=== PATIENT | male | born 1970 | race Caucasian/White ===

== ENCOUNTER 2018-08-07 22:23 | Emergency (ER) | END 2018-08-08 | disposition left against medical advice (07) ==

== ENCOUNTER 2018-12-02 00:12 | Emergency (ER) | payer SELFPAY ==
[~2018-12-02] VITALS: Ht 180.3 cm; Wt 85.6 kg
[~2018-12-02 00:12] MED LIST: ESCI20TA PO; GABA400C14 PO; QUET100T PO; TEMA-106; TRAZ-111; TRAZ-111 PO; ZIPR40CA2 PO
[2018-12-02 00:18] VITALS: BP 129/88; PULSE 91; RESP 18; Ht 180.3 cm; Wt 85.6 kg
[2018-12-03] MEDS ORDERED: IBUP-1542 PO (02:21)
[2018-12-03] MEDS ORDERED: NPH10OT BOTH EARS (02:21)
== END 2018-12-02 05:30 | disposition left against medical advice (07) ==
LOC: FTE 00:12
DX: Z53.21 Procedure and treatment not carried out due to patient leaving prior to being seen by health care provider (principal)

== ENCOUNTER 2018-12-02 23:38 | Emergency (ER) | payer MEDICARE, OTHER ==
[~2018-12-02] VITALS: Ht 180.3 cm; Wt 85.9 kg
[2018-12-02 23:49] VITALS: Ht 180.3 cm; Wt 85.9 kg
[2018-12-03] MEDS ORDERED: IBUP-1542 PO (02:21)
[2018-12-03] MEDS ORDERED: NPH10OT BOTH EARS (02:21)
[2018-12-03 02:30] VITALS: BP 123/78; PULSE 89; RESP 16
--- NOTE | 2018-12-03 02:42 | ERD ---
ER Documentation Chief Complaint Chief Complaint bilateral ear pain since yesterday HPI 48-year-old male history of schizophrenia presents with bilateral ear pain. States the pain started yesterday without any instigating factors. He thinks that someone implanted a high-frequency device in his ears causing the pain. He does not want me to use an otoscope in the ears because he says they are very tender to palpation. He denies any fevers, hearing loss, trauma to the ears. History of thyroid problem and schizophrenia. Taking Tapazole. Denies allergies. ROS All systems reviewed and are negative except as per history of present illness. Medications Home Meds Active Scripts Ibuprofen* (Motrin*) 600 Mg Tab, 600 MG PO Q6 for pain, #30 TAB Prov:RIVKA ALBERTO 12/03/18 Neomycin/Polymyxin/Hydrocort* (Cortisporin* Otic) 10 Ml Susp, 4 DROP BOTH EARS QID for otitis externa for 7 Days, EA Prov:RIVKA ALBERTO 12/03/18 Quetiapine Fumarate* (Seroquel*) 100 Mg Tablet, 100 MG PO HS, #30 TAB Prov:RIVKA GUERRA S. 11/15/18 Trazodone Hcl* (Trazodone Hcl*) 50 Mg Tablet, 50 MG PO QHS, #30 TAB Prov:RIVKA GUERRA. 11/15/18 Ziprasidone* (Geodon*) 40 Mg Capsule, 40 MG PO BID for 10 Days, CAP Prov:RIVKA GUERRA. 11/15/18 Reported Medications Gabapentin* (Gabapentin*) 400 Mg Capsule, 400 MG PO TID, #90 CAP 08/07/18 Trazodone Hcl* (Trazodone Hcl*) 50 Mg Tablet 04/21/11 Escitalopram Oxalate* (Lexapro*) 20 Mg Tablet, 30 PO DAILY 04/21/11 Temazepam (Restoril) 15 Mg Cap 04/21/11 Allergies Allergies: Coded Allergies: No Known Drug Allergies (Verified Allergy, Unknown, 08/07/18) PMhx/Soc History of Surgery: Yes (Jaw Surgery) Anesthesia Reaction: No Hx Neurological Disorder: No Hx Respiratory Disorders: No Hx Cardiac Disorders: No Hx Psychiatric Problems: Yes (ETOH,Clinical Depression) Hx Miscellaneous Medical Probl: Yes (Thyroidism) Hx Alcohol Use: Yes (Formerly) Hx Substance Use: Yes (Opiates) Hx Tobacco Use: Yes (10 sticks/day) Smoking Status: Current every day smoker FmHx Family History: No diabetes, No coronary disease, No other Physical Exam Vitals Vital Signs Date Temp Pulse Resp B/P (MAP) Pulse Ox O2 O2 Flow FiO2 Time Delivery Rate 12/03/18 98.7 89 16 123/78 99 Room Air 02:30 (93) 12/02/18 98.9 99 16 126/82 98 23:49 (97) Physical Exam Const: No acute distress Head: Atraumatic Eyes: Normal Conjunctiva ENT: Normal External Ears, Nose and Mouth. Tragus is tender to palpation on bilateral sides. Unable to insert speculum glottiscope due to pain. There is no mastoid erythema, edema, or tenderness to palpation. Neck: Full range of motion. No meningismus. Resp: Clear to auscultation bilaterally Cardio: Regular rate and rhythm, no murmurs Neur: Awake and alert Procedures/MDM 48-year-old male history of schizophrenia presents with bilateral ear pain. States the pain started yesterday without any instigating factors. He thinks that someone implanted a high-frequency device in his ears causing the pain. He does not want me to use an otoscope in the ears because he says they are very tender to palpation. He denies any fevers, hearing loss, trauma to the ears. History of thyroid problem and schizophrenia. Taking Tapazole. Denies allergies. I have low suspicion for mastoiditis due to lack of erythema, edema, or ttp over mastoid area. I have low suspicion for intercranial abscess due to lack of RINCON or focal neurological findings. I have low suspicion of TM rupture or trauma based on lack of hearing loss, vertigo, and PE findings. Most likely diagnosis is acute otitis external based on these findings I do not feel that additional labs or imaging is necessary. Patient given Rx for Cortisporin as well as ibuprofen. Patient was discharged with strict ER precautions. Patient was recommended to follow-up with PMD. All questions answered at discharge. Departure Diagnosis: Primary Impression: Otitis externa Otitis externa type: unspecified type Chronicity: acute Laterality: bilateral Qualified Codes: H60.503 - Unspecified acute noninfective otitis externa, bilateral Condition: Stable Patient Instructions: External Ear Infection (Adult) Referrals: COMMUNITY CLINICS YOU HAVE RECEIVED A MEDICAL SCREENING EXAM AND THE RESULTS INDICATE THAT YOU DO NOT HAVE A CONDITION THAT REQUIRES URGENT TREATMENT IN THE EMERGENCY DEPARTMENT. FURTHER EVALUATION AND TREATMENT OF YOUR CONDITION CAN WAIT UNTIL YOU ARE SEEN IN YOUR DOCTORS OFFICE WITHIN THE NEXT 1-2 DAYS. IT IS YOUR RESPONSIBILITY TO MAKE AN APPOINTMENT FOR FOLOW-UP CARE. IF YOU HAVE A PRIMARY DOCTOR --you should call your primary doctor and schedule an appointment IF YOU DO NOT HAVE A PRIMARY DOCTOR YOU CAN CALL OUR PHYSICIAN REFERRAL HOTLINE AT IF YOU CAN NOT AFFORD TO SEE A PHYSICIAN YOU CAN CHOSE FROM THE FOLLOWING [facility] [address] [facility] [facility] [address] [facility] [facility] [address] [facility] [facility] [address] [facility] [address] [facility] [facility] [address] Additional Instructions: FOLLOW UP WITH YOUR PRIMARY CARE PHYSICIAN TOMORROW.Return to this facility if you are not improving as expected. RIVKA ALBERTO Dec 03, 2018 02:42
[2018-12-04] MEDS ORDERED: BUPR-75 PO (11:38)
[2018-12-04] MEDS ORDERED: METH10TA5 PO (11:38)
[2018-12-04] MEDS ORDERED: CHOL100062 PO (11:38)
[2018-12-04] MEDS ORDERED: TRAZ-111 PO (11:38)
== END 2018-12-03 02:30 | disposition home or self-care (01) ==
LOC: FTE 23:38
DX: H60.503 Unspecified acute noninfective otitis externa, bilateral (principal); F17.210 Nicotine dependence, cigarettes, uncomplicated; E03.9 Hypothyroidism, unspecified
CPT/HCPCS: 99283

== ENCOUNTER 2018-12-03 23:38 | Emergency (ER) | payer MEDICARE, OTHER ==
[~2018-12-03] VITALS: Ht 180.3 cm; Wt 86.0 kg
[~2018-12-03 23:38] MED LIST changes: +IBUP-1542 PO; +NPH10OT BOTH EARS
[2018-12-03 23:50] VITALS: Ht 180.3 cm; Wt 86.0 kg
--- NOTE | 2018-12-04 00:26 | PSY ---
Date/Time of Note Date/Time of Note DATE: 12/04/18 TIME: 00:15 Psychiatric Subjective Eval Consent Pt consented to telemedicine: Yes Subjective Evaluation Patient location: emergency Chief Complaint: anxiety, states [employer] detectives are tracking him causing weakness, anxiety Medical history Problems Medical Problems: (1) Anxiety Status: Acute (2) Anxiety Status: Acute (3) Depression Status: Acute (4) Hypertension Status: Acute (5) Otitis externa Status: Acute (6) Patient left after triage Status: Acute (7) Patient left without being seen Status: Acute (8) Patient left without being seen Status: Acute Allergies: Coded Allergies: No Known Drug Allergies (Verified Allergy, Unknown, 08/07/18) Assessment and Plan Recommendation/Plan Discharge Disposition: Psychiatric inpatient Legal Status: Place involuntary hold Assessment Additional comments: IDENTIFYING INFORMATION: 48 year old Male patient who is currently located at the hospital and for whom psychiatric consultation was requested. SOURCES OF INFORMATION: The patient who appears to be unreliable and the medical records; the nursing staff. CHIEF COMPLAINT: "they are emitting high-frequency at me". HISTORY OF PRESENT ILLNESS: The patient was interviewed via telemedicine in the presence of and under the supervision of nursing staff of the hospital. The consent to conducting this interview via telemedicine was obtained by the nursing staff at the hospital. SHARON Heller reports that the patient presented was brought in by ambulance for ear pain, reported that there is a device is inserted in his head, the [employer] are tracking him, are emitting frequency. Denies having SI, HI. The patient reports having been tracked by the [employer] and state investigators, reports that the is "preparing myself, they can fabricate a case against me". Admits to thinking of physically protecting himself in "every shape and form". he reports that he cannot protect himself right because he does not have access to a gun because it was a term of his parole. The patient denies having AH, SI. The patient denies using alcohol heavily or regularly. The patient denies using any other substances. In terms of past psychiatric history, the patient reports having a history of past psychiatric hospitalizations. The patient reports having a history of no past suicide attempts. Past medication trials: trazodone, geodon. PAST MEDICAL HISTORY: thyroid disease. CURRENT MEDICATIONS: none. ALLERGIES TO MEDICATIONS: "tapozole". LABORATORY TESTS: pending. SOCIAL HISTORY: lives with family, , but , has kids, on disability. REVIEW OF SYSTEMS: Constitutional (e.g., fever, weight loss): negative; Eyes, Ears, Nose, Mouth, Throat: negative; Cardiovascular: negative; Respiratory: negative; Gastrointestinal: negative; Genitourinary: negative; Musculoskeletal: negative; Integumentary (skin and/or breast): negative; Neurological: negative; Psychiatric: as per HPI; Endocrine: negative; Hematologic/Lymphatic: negative; Allergic/Immunologic: negative. MENTAL STATUS EXAMINATION: General Appearance and Behavior: Anxious, cooperative with the interview, distant with the current interviewer, makes fair eye contact, fairly groomed, no abnormal movements noted, Speech: Regular rate, regular rhythm, normal latency, normal volume, somewhat d ecreased amount, Flow of thought: illogical, tangential, Content of thought: denies auditory hallucinations, no visual hallucinations, + delusions, negative for suicidal ideation; no homicidal ideation, + violent ideation, Mood: "depressed", Affect: dysthymic, reactive, Attention: normal based on the interview, Insight: poor, Judgment: poor, Memory: normal based on the interview, Sensorium: alert and oriented to person, place and date. ASSESSMENT: The patient's presentation and history are consistent with the diagnosis of unspecified psychotic disorder. The patient presents with an exacerbation of psychosis in the context of me dication noncompliance, psychosocial stressors. PLAN: - Medication management: Would start risperidone 0.5 mg po bid. Would start haloperidol 5 mg IM PRN severe agitation q4 hours. Would start diphenhydramine 50 mg IM PRN severe agitation q4 hours. Would start lorazepam 2 mg IM PRN severe agitation q4 hours Will defer to the inpatient psychiatry team for other medication changes. - Labs: Please check CBC, CMP, Alcohol level, UDS. - Psychotherapy: Provided supportive psychotherapy and psychoeducation. - Disposition: Would recommend involuntary admission to the inpatient psychiatric unit given the severity of the patient's psychiatric condition and the fact that the patient is an imminent danger to self and/or others so long as the patient has been cleared medically for admission to psychiatry. Inpatient psychiatric admission is at this time the least restrictive environment where the patient can receive the psychiatric care that is needed. Would place on suicide precautions. The patient fulfills criteria for being placed on an involuntary hold for being a danger to others due to a psychiatric disorder. .I called the emergency room physician who is taking care of the patient to discuss about the above plan but the emergency room physician is not available at this time. I left my phone number with the hospital staff requesting a callback so that the emergency room physician can reach me when they become available. MINDA POP MD Dec 04, 2018 00:26
[2018-12-04] MEDS ORDERED: RISPERIDONE 0.25 MG TAB PO ONE (01:30)
--- NOTE | 2018-12-04 03:09 | ERD ---
ER Documentation Chief Complaint Chief Complaint anxiety, states [employer] detectives are tracking him causing weakness, anxiety HPI This is a 48-year-old male well-known to us who comes in stating exam anxiety because he feels a [employer]. He says it causes him to feel weak and anxious. Patient is very tangential. Denies homicidal or suicidal ideation. Denies any other current complaints. ROS All systems reviewed and are negative except as per history of present illness. Medications Home Meds Active Scripts Ibuprofen* (Motrin*) 600 Mg Tab, 600 MG PO Q6 for pain, #30 TAB Prov:RIVKA ALBERTO 12/03/18 Neomycin/Polymyxin/Hydrocort* (Cortisporin* Otic) 10 Ml Susp, 4 DROP BOTH EARS QID for otitis externa for 7 Days, EA Prov:RIVKA ALBERTO 12/03/18 Quetiapine Fumarate* (Seroquel*) 100 Mg Tablet, 100 MG PO HS, #30 TAB Prov:RIVKA GUERRA. 11/15/18 Trazodone Hcl* (Trazodone Hcl*) 50 Mg Tablet, 50 MG PO QHS, #30 TAB Prov:RIVKA GUERRA. 11/15/18 Ziprasidone* (Geodon*) 40 Mg Capsule, 40 MG PO BID for 10 Days, CAP Prov:RIVKA GUERRA. 11/15/18 Reported Medications Gabapentin* (Gabapentin*) 400 Mg Capsule, 400 MG PO TID, #90 CAP 08/07/18 Trazodone Hcl* (Trazodone Hcl*) 50 Mg Tablet 04/21/11 Escitalopram Oxalate* (Lexapro*) 20 Mg Tablet, 30 PO DAILY 04/21/11 Temazepam (Restoril) 15 Mg Cap 04/21/11 Allergies Allergies: Coded Allergies: No Known Drug Allergies (Verified Allergy, Unknown, 08/07/18) PMhx/Soc History of Surgery: Yes (Jaw Surgery) Anesthesia Reaction: No Hx Neurological Disorder: No Hx Respiratory Disorders: No Hx Cardiac Disorders: No Hx Psychiatric Problems: Yes (ETOH,Clinical Depression) Hx Miscellaneous Medical Probl: Yes (Thyroidism) Hx Alcohol Use: Yes (Formerly) Hx Substance Use: Yes (Opiates) Hx Tobacco Use: Yes (10 sticks/day) Smoking Status: Current every day smoker Physical Exam Vitals Vital Signs Date Temp Pulse Resp B/P (MAP) Pulse Ox O2 O2 Flow FiO2 Time Delivery Rate 12/03/18 98.2 92 20 123/97 97 Room Air 23:59 (106) 12/03/18 98.0 100 18 129/86 95 23:50 (100) Physical Exam Const: No acute distress Head: Atraumatic Eyes: Normal Conjunctiva ENT: Normal External Ears, Nose and Mouth. Neck: Full range of motion. No meningismus. Resp: Clear to auscultation bilaterally Cardio: Regular rate and rhythm, no murmurs Abd: Soft, non tender, non distended. Normal bowel sounds Skin: No petechiae or rashes Back: No midline or flank tenderness Ext: No cyanosis, or edema Neur: Awake and alert Psych: Normal Mood and Affect Result Diagram: 12/04/180 12/04/180 Results 24 hrs Laboratory Tests Test 12/04/18 00:40 White Blood Count 6.3 10^3/ul Red Blood Count 4.31 10^6/ul Hemoglobin 13.5 g/dl Hematocrit 39.3 % Mean Corpuscular Volume 91.2 fl Mean Corpuscular Hemoglobin 31.3 pg Mean Corpuscular Hemoglobin Concent 34.4 g/dl Red Cell Distribution Width 12.4 % Platelet Count 278 10^3/UL Mean Platelet Volume 9.7 fl Immature Granulocytes % 0.200 % Neutrophils % 63.4 % Lymphocytes % 25.4 % Monocytes % 7.2 % Eosinophils % 3.0 % Basophils % 0.8 % Nucleated Red Blood Cells % 0.0 /100WBC Immature Granulocytes # 0.010 10^3/ul Neutrophils # 4.0 10^3/ul Lymphocytes # 1.6 10^3/ul Monocytes # 0.5 10^3/ul Eosinophils # 0.2 10^3/ul Basophils # 0.1 10^3/ul Nucleated Red Blood Cells # 0.0 10^3/ul Sodium Level 140 mmol/L Potassium Level 3.8 mmol/L Chloride Level 102 mmol/L Carbon Dioxide Level 31 mmol/L Anion Gap 7 Blood Urea Nitrogen 12 mg/dl Creatinine 0.97 mg/dl Est Glomerular Filtrat Rate mL/min > 60 mL/min Glucose Level 98 mg/dl Calcium Level 9.2 mg/dl Total Bilirubin 0.5 mg/dl Direct Bilirubin 0.00 mg/dl Indirect Bilirubin 0.5 mg/dl Aspartate Amino Transf (AST/SGOT) 26 IU/L Alanine Aminotransferase (ALT/SGPT) 28 IU/L Alkaline Phosphatase 106 IU/L Total Protein 6.3 g/dl Albumin 3.7 g/dl Globulin 2.60 g/dl Albumin/Globulin Ratio 1.42 Salicylates Level < 1.0 mg/dl Acetaminophen Level < 10.0 ug/ml Ethyl Alcohol Level < 10.0 mg/dl Current Medications Medications Dose Sig/Taniya Start Time Status Last (Trade) Ordered Route PRN Stop Time Admin Dose Reason Admin Risperidone 0.5 mg BID ONCE 12/04/18 DC (Risperdal) PO 01:30 12/04/18 01:31 Procedures/MDM Emergency department course: Patient brought by rescue. Seen and evaluated ER MD. Placed in bed. Placed on one-to-one watch. Telemetry psychiatry evaluation ordered. Medical decision making: Patient's behavioral symptoms have stabilized while in the department. Patient is medically cleared and appropriate for psychiatric evaluation and work up. No e/o neurologic, toxic, infectious, or metabolic cause. Recommended for involuntary hold by telemetry psychiatry. Medications appreciated. Patient currently pending placement. Departure Diagnosis: Primary Impression: Psychosis Psychosis type: unspecified psychosis type Qualified Codes: F29 - Unspecified psychosis not due to a substance or known physiological condition Condition: RIVKA Archer Dec 04, 2018 03:09
--- NOTE | 2018-12-04 10:11 | QN ---
Documentation Comment Observation Note: Time: 4 hours Family Hx: Negative for diabetes Evaluation: Multiple exams showed improving symptoms and no evidence of clinical decompensation. CESIA DEL RIO MD Dec 04, 2018 10:11
[2018-12-04] MEDS ORDERED: TRAZ-111 PO (11:38)
[2018-12-04] MEDS ORDERED: METH10TA5 PO (11:38)
[2018-12-04] MEDS ORDERED: CHOL100062 PO (11:38)
[2018-12-04] MEDS ORDERED: BUPR-75 PO (11:38)
[2018-12-04 11:56] VITALS: BP 119/74; PULSE 80; RESP 20
== END 2018-12-04 12:30 ==
LOC: E/R 23:38
DX: F29 Unspecified psychosis not due to a substance or known physiological condition (principal); F17.210 Nicotine dependence, cigarettes, uncomplicated
CPT/HCPCS: 80053; 80307; 85025; 99285

== ENCOUNTER 2018-12-18 23:58 | Emergency (ER) | payer MEDICARE, OTHER ==
[~2018-12-18] VITALS: Ht 180.3 cm; Wt 86.0 kg
[~2018-12-18 23:58] MED LIST changes: +BUPR-75 PO; +CHOL100062 PO; -ESCI20TA PO; -GABA400C14 PO; -IBUP-1542 PO; +METH10TA5 PO; -NPH10OT BOTH EARS; -QUET100T PO; -TEMA-106; -TRAZ-111; -ZIPR40CA2 PO
[2018-12-19 00:41] VITALS: BP 139/95; PULSE 112; RESP 18; Ht 180.3 cm; Wt 86.0 kg
== END 2018-12-19 05:55 | disposition left against medical advice (07) ==
LOC: E/R 23:58
DX: Z53.21 Procedure and treatment not carried out due to patient leaving prior to being seen by health care provider (principal)

== ENCOUNTER 2018-12-19 07:17 | Emergency (ER) | payer SELFPAY ==
[~2018-12-19] VITALS: Ht 180.3 cm; Wt 86.1 kg
[2018-12-19 07:24] VITALS: BP 124/74; PULSE 99; RESP 19; Ht 180.3 cm; Wt 86.1 kg
== END 2018-12-19 09:42 | disposition left against medical advice (07) ==
LOC: FTE 07:17
DX: Z53.21 Procedure and treatment not carried out due to patient leaving prior to being seen by health care provider (principal)

== ENCOUNTER 2018-12-19 11:09 | Emergency (ER) | payer SELFPAY ==
[~2018-12-19] VITALS: Ht 180.3 cm; Wt 81.8 kg
[2018-12-19 11:17] VITALS: BP 142/86; PULSE 106; RESP 20; Ht 180.3 cm; Wt 81.8 kg
== END 2018-12-19 17:53 | disposition left against medical advice (07) ==
LOC: E/R 11:09
DX: Z53.21 Procedure and treatment not carried out due to patient leaving prior to being seen by health care provider (principal)

== ENCOUNTER 2018-12-20 17:02 | Emergency (ER) | payer MEDICARE, OTHER ==
[~2018-12-20] VITALS: Ht 188 cm; Wt 100.0 kg
[2018-12-20 17:09] VITALS: Ht 188 cm; Wt 100.0 kg
--- NOTE | 2018-12-20 20:35 | ERD ---
ER Documentation Chief Complaint Chief Complaint ANXIETY WITH THOUGHTS OF HURTING HIMSELF X 3 DAYS HPI 48-year-old male presents the emergency department complaining of suicidal ideation. Patient states he has a long-standing history of psychiatric disease. Over the last 3 days, he is felt increasingly suicidal. He has a plan to run in front of traffic. He states he has been compliant with his medication, but despite the medication continues to feel suicidal. Patient reports no acute medical conditions. ROS All systems reviewed and are negative except as per history of present illness. Medications Home Meds Reported Medications Bupropion Hcl* (Wellbutrin XL*) 150 Mg Tab.sr.24h, 150 MG PO DAILY, TAB.SA 12/04/18 Cholecalciferol* (Vitamin D3*) 1,000 Unit Tablet, 1000 UNIT PO DAILY, TAB 12/04/18 Methimazole* (Methimazole*) 10 Mg Tablet, 20 MG PO DAILY, TAB 12/04/18 Trazodone Hcl* (Trazodone Hcl*) 50 Mg Tablet, 50 MG PO QHS, #30 TAB 12/04/18 Allergies Allergies: Coded Allergies: No Known Drug Allergies (Verified Allergy, Unknown, 12/04/18) PMhx/Soc History of Surgery: Yes (Jaw Surgery) Anesthesia Reaction: No Hx Neurological Disorder: No Hx Respiratory Disorders: No Hx Cardiac Disorders: No Hx Psychiatric Problems: Yes (ETOH,Clinical Depression) Hx Miscellaneous Medical Probl: Yes (Thyroidism) Hx Alcohol Use: Yes (Formerly) Hx Substance Use: Yes (Opiates) Hx Tobacco Use: Yes (10 sticks/day) FmHx Noncontributory for chief complaint Physical Exam Vitals Vital Signs Date Temp Pulse Resp B/P (MAP) Pulse Ox O2 O2 Flow FiO2 Time Delivery Rate 12/20/18 98.9 107 18 154/83 98 17:09 (106) Physical Exam GENERAL: The patient is well developed and appropriate for usual state of health in no apparent distress HEENT: Pupils equal, round, and reactive to light. EOMI. There is no scleral icterus. NECK: C-spine is soft and supple, there is no meningismus. There is no cervical lymphadenopathy. LUNGS: Clear to auscultation bilaterally. There are no rales, wheezes or rhonchi. HEART: Regular rate and rhythm, no murmurs, clicks, rubs or gallops. ABDOMEN: Soft, non-tender, non-distended. There are bowel sounds in all four quadrants. No rebound or guarding. EXTREMITIES: There is no peripheral cyanosis or edema. No focal swelling or erythema. NEURO: The patient moves all four extremities with 5/5 strength. Cranial nerves II - XII are intact. Normal gait. Alert and oriented SKIN: There is no apparent rash or petechiae. HEME/LYMPHATIC: There is no evidence of excessive bruising or lymphedema. PSYCHIATRIC: Patient is awake, alert, oriented. He has some insight and judgment. He is expressing suicidal ideations. He denies auditory or visual hallucinations at this time. Result Diagram: 12/20/18191512/20/181915 Results 24 hrs Laboratory Tests Test 12/20/18 19:16 White Blood Count 6.3 10^3/ul Red Blood Count 4.51 10^6/ul Hemoglobin 14.2 g/dl Hematocrit 41.5 % Mean Corpuscular Volume 92.0 fl Mean Corpuscular Hemoglobin 31.5 pg Mean Corpuscular Hemoglobin Concent 34.2 g/dl Red Cell Distribution Width 13.0 % Platelet Count 288 10^3/UL Mean Platelet Volume 9.0 fl Immature Granulocytes % 0.300 % Neutrophils % 69.4 % Lymphocytes % 20.5 % Monocytes % 6.8 % Eosinophils % 2.5 % Basophils % 0.5 % Nucleated Red Blood Cells % 0.0 /100WBC Immature Granulocytes # 0.020 10^3/ul Neutrophils # 4.4 10^3/ul Lymphocytes # 1.3 10^3/ul Monocytes # 0.4 10^3/ul Eosinophils # 0.2 10^3/ul Basophils # 0.0 10^3/ul Nucleated Red Blood Cells # 0.0 10^3/ul Sodium Level 140 mmol/L Potassium Level 4.3 mmol/L Chloride Level 105 mmol/L Carbon Dioxide Level 31 mmol/L Anion Gap 4 Blood Urea Nitrogen 15 mg/dl Creatinine 0.83 mg/dl Est Glomerular Filtrat Rate mL/min > 60 mL/min Glucose Level 111 mg/dl Calcium Level 9.3 mg/dl Total Bilirubin 1.5 mg/dl Direct Bilirubin 0.00 mg/dl Indirect Bilirubin 1.5 mg/dl Aspartate Amino Transf (AST/SGOT) 20 IU/L Alanine Aminotransferase (ALT/SGPT) 28 IU/L Alkaline Phosphatase 116 IU/L Total Protein 6.6 g/dl Albumin 3.8 g/dl Globulin 2.80 g/dl Albumin/Globulin Ratio 1.35 Salicylates Level < 1.0 mg/dl Acetaminophen Level < 10.0 ug/ml Ethyl Alcohol Level < 10.0 mg/dl Procedures/MDM Patient was taken to a room, seen and evaluated. Comfort measures were initiated. Diagnostic tests were ordered and reviewed. CONSULTATION: Tele-psychiatry has been requested and consultation is pending REEVALUATION: 2034: Diagnostic tests were appreciated. Patient was "medically clear" for psychiatric evaluation MEDICAL DECISION MAKIN-year-old male with an underlying history of psychiatric disease presents the emergency department with symptoms consistent with his underlying psychiatric diagnosis now decompensated. Patient will be evaluated for a 5150 with anticipation of referral for psychiatric hospitalization. Departure Diagnosis: Primary Impression: Suicidal ideation Condition: RONIT Calvillo Dec 20, 2018 20:35
[2018-12-20] MEDS ORDERED: IBUPROFEN 600 MG TAB PO ONE (23:00)
--- NOTE | 2018-12-20 23:14 | PSY ---
Date/Time of Note Date/Time of Note DATE: 12/20/18 TIME: 22:44 Psychiatric Subjective Eval Consent Pt consented to telemedicine: Yes Subjective Evaluation Patient location: emergency Chief Complaint: ANXIETY WITH THOUGHTS OF HURTING HIMSELF X 3 DAYS Reason for consult: Recommendations for disposition History of present illness The patient is a 48 year old Male, with a history of mood problems and problematic substance use, presenting with worsening racing thoughts and suicidal ideations over the past few days. The patient indicated that there are no clearn antecedents to his worsening of symptoms, but states that he has suffered from racing thoughts and suicidal ideations, off and on, for many year s. He states that he is suicidal and cannot convincingly state he could refrain from acting on his thoughts if discharged despite not having a specific plan for self-harm. He reports concurrent insomnia, poor concentration, and the aforementioned SI He denies sxs consistent with psychosis, but he appears internally preoccupied objectively. He reports a h/o mood swings, increased goal directed activities, and the aforementioned racing thoughts. Objectively, he is circumferential and vague. He acknowledges ongoing methamphetamine use, limited only by funds. The patient was advised that I would recommend placement on a 5150 for DTS and transfer to an inpatient psychiatric facility based on the above. He acknowledged and agreed. Past psychiatric history First psychiatric interactions many years ago. "Several" past psychiatric hospitalizations. The last in [place] a few weeks ago. Reports repeated SI, but gives a vague report as to past SA's. Past trials with Seroquel, Zyprexa, Geodon, Abilify, Prozac, and Trazodone. He cannot state which medications helped him in the past. Hospitalization: yes Family History States that mental illness runs in the mother's side of the family. Cannot specify. Medical history Problems Medical Problems: (1) Anxiety Status: Acute (2) Anxiety Status: Acute (3) Depression Status: Acute (4) Hypertension Status: Acute (5) Otitis externa Status: Acute (6) Patient left after triage Status: Acute (7) Patient left after triage Status: Acute (8) Patient left after triage Status: Acute (9) Patient left without being seen Status: Acute (10) Patient left without being seen Status: Acute (11) Psychosis Status: Acute (12) Suicidal ideation Status: Acute Allergies: Coded Allergies: No Known Drug Allergies (Verified Allergy, Unknown, 12/04/18) Substance Abuse Substance use: other (Daily methamphetamines and occasional EtOH. 0.5 ppd of tobacco.) Substance abuse history: Yes (See above.) Prior substance abuse treatmen: No (Unable to state) Social History Marital status: (Has 5 children, but lives in a sober living.) Level of education: Vocational school and some college. 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 Psychiatric Objective Eval Review of Systems: Review of Systems: Not Applicable Physical Examination: Physical Examination: Not Applicable Mental Status Examination: Appearance: Poor Hygiene, Disheveled Eye Contact: Poor Psychomotor Activity: Slow Behavior: Guarded Speech: Soft, Slowed AFFECT: Blunt, Depressed, Constricted, Guarded Mood: Depressed Though Process: Circumstantial Thought Content: Normal Suicidal: Yes Homicidal: No On 72 hour hold: Yes (Recommend placement on 5150 for DTS and GD.) Orientation: x4 Cognition: Alert Insight: Impared Judgement: Impared Attention Span: Distractible Laboratory Results Laboratory Tests Test 12/20/18 19:16 12/20/18 20:30 White Blood Count 6.3 10^3/ul Red Blood Count 4.51 10^6/ul Hemoglobin 14.2 g/dl Hematocrit 41.5 % Mean Corpuscular Volume 92.0 fl Mean Corpuscular Hemoglobin 31.5 pg Mean Corpuscular Hemoglobin Concent 34.2 g/dl Red Cell Distribution Width 13.0 % Platelet Count 288 10^3/UL Mean Platelet Volume 9.0 fl Immature Granulocytes % 0.300 % Neutrophils % 69.4 % Lymphocytes % 20.5 % Monocytes % 6.8 % Eosinophils % 2.5 % Basophils % 0.5 % Nucleated Red Blood Cells % 0.0 /100WBC Immature Granulocytes # 0.020 10^3/ul Neutrophils # 4.4 10^3/ul Lymphocytes # 1.3 10^3/ul Monocytes # 0.4 10^3/ul Eosinophils # 0.2 10^3/ul Basophils # 0.0 10^3/ul Nucleated Red Blood Cells # 0.0 10^3/ul Sodium Level 140 mmol/L Potassium Level 4.3 mmol/L Chloride Level 105 mmol/L Carbon Dioxide Level 31 mmol/L Anion Gap 4 Blood Urea Nitrogen 15 mg/dl Creatinine 0.83 mg/dl Est Glomerular Filtrat Rate mL/min > 60 mL/min Glucose Level 111 mg/dl Calcium Level 9.3 mg/dl Total Bilirubin 1.5 mg/dl Direct Bilirubin 0.00 mg/dl Indirect Bilirubin 1.5 mg/dl Aspartate Amino Transf (AST/SGOT) 20 IU/L Alanine Aminotransferase (ALT/SGPT) 28 IU/L Alkaline Phosphatase 116 IU/L Total Protein 6.6 g/dl Albumin 3.8 g/dl Globulin 2.80 g/dl Albumin/Globulin Ratio 1.35 Salicylates Level < 1.0 mg/dl Acetaminophen Level < 10.0 ug/ml Ethyl Alcohol Level < 10.0 mg/dl Urine Color YELLOW Urine Clarity TURBID Urine pH 7.0 Urine Specific Henefer 1.020 Urine Ketones TRACE mg/dL Urine Nitrite NEGATIVE mg/dL Urine Bilirubin NEGATIVE mg/dL Urine Urobilinogen 2+ mg/dL Urine Leukocyte Esterase NEGATIVE Slim/ul Urine Microscopic RBC 2 /HPF Urine Microscopic WBC 0 /HPF Urine Amorphous Crystals MODERATE /HPF Urine Mucus FEW /HPF Urine Hemoglobin NEGATIVE mg/dL Urine Glucose NEGATIVE mg/dL Urine Total Protein NEGATIVE mg/dl Urine Opiates Screen Negative Urine Barbiturates Negative Urine Amphetamines Screen POSITIVE Urine Benzodiazepines Screen Negative Urine Cocaine Screen Negative Urine Cannabinoids Negative Assessment and Plan Assessment/Diagnosis Diagnosis Bipolar d/o Type I, MRE mixed, severe, without psychotic features (F31.63) Amphetamine dependence Nicotine dependence r/o EtOH abuse Recommendation/Plan Medication Management Recommend Zyprexa 5 mg PO bid first dose now until placed in inpatient psych. Recommend Haldol 5 mg PO/IM with Benadryl 50 mg PO/IM [id number] PRN agitation until placed in inpatient psych. Multiple antipsychotics: No Discharge Disposition: Psychiatric inpatient Legal Status: Place involuntary hold JACK JENNINGS MD Dec 20, 2018 23:07
[2018-12-21] MEDS ORDERED: NICOTINE (14 MG/24 HR) PATCH TRANSDERM ONE (14:00)
[2018-12-21 14:21] VITALS: BP 120/78; PULSE 91; RESP 18
== END 2018-12-21 14:40 ==
LOC: E/R 17:02
DX: R45.851 Suicidal ideations (principal); E03.9 Hypothyroidism, unspecified; Z87.891 Personal history of nicotine dependence
CPT/HCPCS: 36415; 80053; 80307; 81001; 85025

== ENCOUNTER 2019-04-29 03:56 | Emergency (ER) | payer MEDICARE, OTHER ==
[~2019-04-29] VITALS: Ht 180.3 cm; Wt 88.8 kg
[~2019-04-29 03:56] MED LIST changes: +TEMA30CA PO
[2019-04-29 04:00] VITALS: BP 150/82; PULSE 120; RESP 18; Ht 180.3 cm; Wt 88.8 kg
--- NOTE | 2019-04-29 04:13 | ERD ---
ER Documentation Chief Complaint Chief Complaint states pain/numbness both thumbs, 2nd,3rd fingers and toes x 1 week HPI This is a 48-year-old male who presents emergency department with complaints of bilateral upper and lower extremity numbness and tingling sensation for about a week. Denies headache, head injury, loss of consciousness, dizziness, neck pain, neck stiffness, throat pain, difficulty swallowing, difficulty breathing lying flat, shoulder pain, chest pain, back pain, abdominal pain, nausea, vomiting, constipation, diarrhea, urinary symptoms, loss of bowel and bladder control, trauma, injury, falls, difficulty walking due to pain, calf pain, recent travel, recent major surgery in the last 3 weeks, calf pain, recent long travel, recent exposure to any illness, recent antibiotic use in the last 3 months, fever, chills, seizures. Past medical history: Depression. Denies family history of heart attack/stroke before the age of 50. Medication: Tramadol. Ranitidine. Seroquel. Restoril. Motrin. Surgical history: Denies. Social: Denies smoking, use of alcoholic beverages, use of illegal drugs. ROS All systems reviewed and are negative except as per history of present illness. Medications Home Meds Active Scripts Temazepam* (Temazepam*) 30 Mg Capsule, 30 MG PO HS PRN for INSOMNIA, #7 CAP Prov:RELL FERNANDEZ MD 05/08/19 Reported Medications Bupropion Hcl* (Wellbutrin XL*) 150 Mg Tab.sr.24h, 150 MG PO DAILY, TAB.SA 12/04/18 Cholecalciferol* (Vitamin D3*) 1,000 Unit Tablet, 1000 UNIT PO DAILY, TAB 12/04/18 Methimazole* (Methimazole*) 10 Mg Tablet, 20 MG PO DAILY, TAB 12/04/18 Trazodone Hcl* (Trazodone Hcl*) 50 Mg Tablet, 50 MG PO QHS, #30 TAB 12/04/18 Allergies Allergies: Coded Allergies: No Known Drug Allergies (Verified Allergy, Unknown, 12/20/18) PMhx/Soc History of Surgery: Yes (Jaw Surgery) Anesthesia Reaction: No Hx Neurological Disorder: No Hx Respiratory Disorders: No Hx Cardiac Disorders: No Hx Psychiatric Problems: Yes (ETOH,Clinical Depression) Hx Miscellaneous Medical Probl: Yes (Thyroidism) Hx Alcohol Use: Yes (Formerly) Hx Substance Use: Yes (Opiates,BENZO) Hx Tobacco Use: Yes (10 sticks/day) Smoking Status: Current every day smoker Physical Exam Vitals Physical Exam Const: No acute distress Head: Atraumatic Eyes: Normal Conjunctiva ENT: Normal External Ears, Nose and Mouth. Neck: Full range of motion. No meningismus. Resp: Clear to auscultation bilaterally Cardio: Regular rate and rhythm, no murmurs Abd: Soft, non tender, non distended. Normal bowel sounds Skin: No petechiae or rashes Back: No midline or flank tenderness Ext: No cyanosis, or edema Neur: Awake and alert Psych: Normal Mood and Affect. Denies auditory/visual hallucinations/delusions. Not suicidal. Not homicidal. Has the capacity to decide for self. Has good support system at home. Results 24 hrs Current Medications Medications Dose Sig/Taniya Start Time Status Last (Trade) Ordered Route PRN Stop Time Admin Dose Reason Admin Lorazepam 1 mg ONCE ONCE 04/29/19 DC (Ativan) PO 04:30 04/29/19 04:43 Sodium 1,000 ml @ Q1H ONCE 04/29/19 DC Chloride 1,000 mls/hr IV 05:00 04/29/19 05:59 25 mg ONCE ONCE 04/29/19 DC Diphenhydrami IV 05:00 ne HCl 04/29/19 05:01 (Benadryl) Famotidine 20 mg ONCE ONCE 04/29/19 DC (Pepcid Iv) IV 05:00 04/29/19 05:01 Procedures/MDM Diagnostic tests: EKG: Sinus tachycardia with ventricular rate of 108 bpm. No STEMI. Read by supervising physician. Urine drug screen: Cancelled. Treatment: Ativan. Patient refused Ativan. Saline lock. Normal saline IV bolus. Benadryl IV. Pepcid IV. Re-evaluation: Denies headache, neck pain, chest pain, back pain, chest pressure. No obvious facial droop. Follows commands. Speaks full and clear sentences. Equal powerbuilder. Equal strength in bilateral upper and lower extremities. Romberg test negative. No neurological deficits. Denies auditory/visual hallucinations/delusions. Not suicidal. Not homicidal. Has the capacity to decide for self. Has good support system at home. Differential diagnosis I have low suspicion for stroke, atrial fibrillation, suicidal ideation, homicidal ideation, 5150. Final diagnosis: Anxiety. Prescription: Hydroxyzine. Follow-up with PCP in the next 24-48 hours. Come back here in the emergency department for any new symptoms or any worsening symptoms. All questions and concerns were answered. Patient and family members verbalized understanding and agreed with plan of care. Hemodynamically stable on discharge. Departure Diagnosis: Primary Impression: Anxiety Condition: Stable Additional Instructions: Follow-up with PCP in the next 24-48 hours. Come back here in the emergency department for any new symptoms or any worsening symptoms. JOSE ALBERTO JEFFERSON Apr 29, 2019 04:13
[2019-04-29] MEDS ORDERED: LORAZEPAM 1 MG TAB PO ONE (04:30)
[2019-04-29] MEDS ORDERED: SOD CHLORIDE 0.9% 1,000 ML IV ONE (05:00)
[2019-04-29] MEDS ORDERED: DIPHENHYDRAMINE 50 MG INJ IV ONE (05:00)
[2019-04-29] MEDS ORDERED: FAMOTIDINE 20 MG INJ IV ONE (05:00)
== END 2019-04-29 05:59 | disposition left against medical advice (07) ==
LOC: FTE 03:56
DX: F41.9 Anxiety disorder, unspecified (principal); E03.9 Hypothyroidism, unspecified; F17.210 Nicotine dependence, cigarettes, uncomplicated; R00.0 Tachycardia, unspecified
CPT/HCPCS: 93005; 99283; J7030

== ENCOUNTER 2019-05-08 03:30 | Emergency (ER) | payer MEDICARE, OTHER ==
[~2019-05-08] VITALS: Ht 180.3 cm; Wt 83.9 kg
[2019-05-08 03:34] VITALS: BP 143/86; PULSE 98; RESP 19; Ht 180.3 cm; Wt 83.9 kg
--- NOTE | 2019-05-08 04:27 | ERD ---
ER Documentation Chief Complaint Chief Complaint STATES ANXIOUS BECAUSE ="SKIPPED 3DAYS OF TAKING WELBUTRIN" DENIES SI/HI HPI 48-year-old male, with history of anxiety, presents to the emergency department, complaining of worsening of symptoms for 3 days. The patient is requesting a temazepam refill. Otherwise, the patient denies suicidal or homicidal ideation, no reports of visual or auditory hallucinations. ROS All systems reviewed and are negative except as per history of present illness. Medications Home Meds Active Scripts Temazepam* (Temazepam*) 30 Mg Capsule, 30 MG PO HS PRN for INSOMNIA, #7 CAP Prov:RELL FERNANDEZ MD 05/08/19 Reported Medications Bupropion Hcl* (Wellbutrin XL*) 150 Mg Tab.sr.24h, 150 MG PO DAILY, TAB.SA 12/04/18 Cholecalciferol* (Vitamin D3*) 1,000 Unit Tablet, 1000 UNIT PO DAILY, TAB 12/04/18 Methimazole* (Methimazole*) 10 Mg Tablet, 20 MG PO DAILY, TAB 12/04/18 Trazodone Hcl* (Trazodone Hcl*) 50 Mg Tablet, 50 MG PO QHS, #30 TAB 12/04/18 Allergies Allergies: Coded Allergies: No Known Drug Allergies (Verified Allergy, Unknown, 12/20/18) PMhx/Soc History of Surgery: Yes (Jaw Surgery) Anesthesia Reaction: No Hx Neurological Disorder: No Hx Respiratory Disorders: No Hx Cardiac Disorders: No Hx Psychiatric Problems: Yes (ETOH,Clinical Depression) Hx Miscellaneous Medical Probl: Yes (Thyroidism) Hx Alcohol Use: Yes (Formerly) Hx Substance Use: Yes (Opiates,BENZO) Hx Tobacco Use: Yes (10 sticks/day) Smoking Status: Current every day smoker Physical Exam Vitals Vital Signs Date Temp Pulse Resp B/P (MAP) Pulse Ox O2 O2 Flow FiO2 Time Delivery Rate 05/08/19 97.9 98 19 143/86 99 03:34 (105) Physical Exam Const: No acute distress Head: Atraumatic Eyes: Normal Conjunctiva ENT: Normal External Ears, Nose and Mouth. Neck: Full range of motion. No meningismus. Resp: Clear to auscultation bilaterally Cardio: Regular rate and rhythm, no murmurs Abd: Soft, non tender, non distended. Normal bowel sounds Skin: No petechiae or rashes Back: No midline or flank tenderness Ext: No cyanosis, or edema Neur: Awake and alert Psych: Normal Mood and Affect Results 24 hrs Current Medications Medications Dose Sig/Taniya Start Time Status Last (Trade) Ordered Route PRN Stop Time Admin Dose Reason Admin Alprazolam 1 mg ONCE ONCE 05/08/19 DC 05/08/19 (Xanax) PO 04:30 05/08/19 04:35 04:31 Procedures/MDM Vital signs stable, Physical exam unremarkable, neurovascular exam intact. Differential diagnosis include but not limited to: Depression, anxiety, migraine, thyroid disease, electrolyte imbalance. Low suspicion for acute coronary event, aortic dissection, CVA. Physical examination and clinical presentation consistent most likely with anxiety. During the ED course the patient remained stable, no new complaints. Treatment options, results and clinical impression discussed with patient who agrees with management. The patient is stable to be treated outpatient and will be discharged home with a Rx for temazepam, some side effects of prescribed medications (headache, rash, nausea, vomiting, diarrhea, drowsiness, habituation, bleeding, hypertension, interactions with other medications) were reviewed. The patient was instructed to follow up with the primary care provider in the next 48h. If symptoms persist, worsen or new symptoms develop, then patient should return to the ED immediately. Instructions explained and given directly by me to the patient with acknowledgment and demonstrated understanding. Disclaimer: Inadvertent spelling and grammatical errors are likely due to EHR/dictation software use and do not reflect on the overall quality of patient care. Also, please note that the electronic time recorded on this note does not necessarily reflect the actual time of the patient encounter. Departure Diagnosis: Primary Impression: Anxiety Condition: Stable Additional Instructions: Thank you very much for allowing us to participate in your care. Your health and safety is our top priority at [facility]. The evaluation in the emergency department has been done to rule out an acute emergency. Chronic, [id number] conditions may have not been evaluated; therefore, you need to follow up with a primary care provider in the next 48h. If symptoms persist, worsen or new symptoms develop, then patient should return to the ED immediately. Call your primary care doctor TOMORROW for an appointment during the next 2-4 days and bring all the information provided. Have prescriptions filled and follow precisely the directions on the label. If the symptoms get worse and your provider is unavailable, return to the Emergency Department immediately. RELL FERNANDEZ MD May 08, 2019 04:27
[2019-05-08] MEDS ORDERED: ALPRAZOLAM 1 MG TAB PO ONE (04:30)
== END 2019-05-08 05:10 | disposition home or self-care (01) ==
LOC: FTE 03:30
DX: F41.9 Anxiety disorder, unspecified (principal); F17.210 Nicotine dependence, cigarettes, uncomplicated
CPT/HCPCS: 99283

== ENCOUNTER 2019-06-05 03:58 | Emergency (ER) | payer MEDICARE, OTHER ==
[~2019-06-05] VITALS: Ht 180.3 cm; Wt 84.7 kg
[2019-06-05 04:09] VITALS: BP 116/82; PULSE 115; RESP 17; Ht 180.3 cm; Wt 84.7 kg
== END 2019-06-05 04:45 | disposition left against medical advice (07) ==
LOC: FTE 03:58
DX: Z53.21 Procedure and treatment not carried out due to patient leaving prior to being seen by health care provider (principal)